=== PATIENT | male | born 1970 | race Caucasian/White ===

== ENCOUNTER 2020-11-30 02:48 | Observation (INO) | payer OTHER ==
[~2020-11-30] VITALS: Ht 180.3 cm; Wt 89.4 kg
[2020-11-30 03:39] LABS: BASOPHILS ABSOLUTE AUTO 0.12 K/mm3 (0.00-0.23); BASOPHILS PERCENT AUTO 2 % (0-2); EOSINOPHILS ABSOLUTE AUTO 0.31 K/mm3 (0.00-0.68); EOSINOPHILS PERCENT AUTO 4 % (0-6); Hematocrit 41.6 % (37.0-53.0); Hemoglobin 14.4 g/dL (13.5-17.5); IMMATURE GRAN ABSOLUTE AUTO 0.02 K/mm3 (0.00-0.10); IMMATURE GRAN PERCENT AUTO 0 % (0-1); LYMPHOCYTES ABSOLUTE AUTO 2.48 K/mm3 (0.84-5.20); LYMPHOCYTES PERCENT AUTO 33 % (21-46); MONOCYTES ABSOLUTE AUTO 0.84 K/mm3 (0.16-1.47); MONOCYTES PERCENT AUTO 11 % (4-13); Mean Corpuscular HGB Conc 34.6 g/dL (31.5-36.5); Mean Corpuscular Volume 92 fL (80-100); Mean Platelet Volume 10.2 fL (9.1-12.4); NEUTROPHILS ABSOLUTE AUTO 3.71 K/mm3 (1.96-9.15); NEUTROPHILS PERCENT AUTO 50 % (41-73); Platelet Count 104 K/mm3 (150-400); RDW Coefficient Variation 12.3 % (11.7-14.2); RDW Standard Deviation 42.1 fL (35.1-46.3); White Blood Cell Count 7.48 K/mm3 (4.00-11.30)
[2020-11-30 03:44] LABS: Alanine Aminotransfer (ALT/SGP 29 U/L (12-78); Albumin, Blood 3.6 g/dL (3.4-5.0); Alk Phos 66 U/L (50-136); Anion Gap 6 mmol/L (6-16); Aspartate Aminotrans (AST/SGOT 26 U/L (12-37); Bilirubin, Total 0.8 mg/dL (0.1-1.0); Blood Urea Nitrogen 14 mg/dL (8-24); Bun/Creatinine Ratio 18.5 (12.0-20.0); CO2, Blood 24 mmol/L (21-32); Calcium, Blood 8.1 mg/dL (8.5-10.1); Chloride, Blood 110 mmol/L (98-108); Creatinine, Blood 0.76 mg/dL (0.60-1.20); Globulin, Blood 3.5 g/dL (2.2-4.0); Glomerular Filtration Rate >60 (60-); Glucose, Blood 85 mg/dL (70-99); Potassium, Blood 3.6 mmol/L (3.5-5.5); Sodium, Blood 140 mmol/L (136-145); Total Protein, Blood 7.1 g/dL (6.4-8.2)
--- NOTE | 2020-11-30 05:00 | NUR ---
ADMISSION/SUMMARY NOTE RECEIVED HAND OFF FROM Romeo MCKENNA RN USING SBAR. TRANSPORTED TO ROOM 333 VIA STRETCHER. TRANSFEERED SELF TO BED WITH STANDBY ASSIST, TOLERATED WELL. AAO X3, SNOW, FOLLOWS ALL COMMANDS. ORIENTED TO ROOM, CALL SYSTEM, AND POC, VOICES UNDERSTANDING. RESPIRATIONS EVEN AND UNLABORED ON RA. LUNG SOUNDS CLEAR BILATERALLY. ABDOMEN SOFT AND NONDISTENDED. BOWEL SOUNDS NOTED IN ALL QUADS. CONTINENT OF BOWEL AND BLADDER. INDEPENDENT IN THE ROOM. DENIES SOB OR CP, TELE SHOWS NSR. RIGHT AC 18G PIV IS PATENT, INFUSING NS AT 75ML/HR. ADMISSION ASSESSMENT IN PROGRESS. SAFETY MEASURES IN PLACE. WILL CONTINUE TO MONITOR AND ADRRESS NEEDS THEY ARISE AND GIVE HAND OFF TO ONCOMING SHIFT USING SBAR.
[2020-11-30] MEDS ORDERED: MULVITA (06:02)
--- NOTE | 2020-11-30 10:43 | NUR ---
DR'S NOTE SAYS THAT IF TROPONIN REMAINS HIGH A STRESS TEST SHOULD BE ORDERED, DR OCONNELL STOPPED BY TO ASSESS PT WHO WAS SLEEPING, ASKED NURSE TO ASK PT WHAT THE PT WANTED, PT EXPRESSED DESIRE THAT IF INDICATED HE WOULD LIKE TO KNOW THE CAUSE OF HEART ISSUES SO IF A STRESS TEST WOULD INFORM HIM HE WOULD WANT ONE, WROTE ORDER AND AM WAITING ON TOPONIN TEST RESULTS
[2020-11-30 11:19] LABS: Troponin I 0.196 ng/mL (0.000-0.040)
--- NOTE | 2020-11-30 17:21 | NUR ---
A+O, WAITING RESULT OF TROPONIN IF LOW WANTS TO GO HOME IF NOT HOPES TO HAVE A STRESS TEST, WILL CONTINUE TO MONITOR AND TREAT
[2020-11-30 17:33] LABS: Troponin I 0.154 ng/mL (0.000-0.040)
[2020-11-30] MEDS ORDERED: ASPI81CH PO (18:10)
[2020-11-30] MEDS ORDERED: METO25ER PO (18:10)
--- NOTE | 2020-11-30 18:26 | NUR ---
responded to the pt request and wrote up dc orders after pt stated he wanted to see his home dr, iv and tele removed, dc orders and medications reviewed with pt, staff escorted pt in wc to family vehicle, pt had agreed to 's request that he not drive
== END 2020-11-30 18:17 | disposition home or self-care (01) ==
LOC: ER 02:48 → MEDS 02:49
PROVIDERS: Emergency Medicine; ADMIT Internal Medicine
DX: R07.9 Chest pain, unspecified (principal); R79.89 Other specified abnormal findings of blood chemistry; F17.210 Nicotine dependence, cigarettes, uncomplicated; E11.9 Type 2 diabetes mellitus without complications
CPT/HCPCS: 36415; 71045; 80053; 82550; 83735; 84484; 85025; 93005; 93010; 93306; 96372; 99285-25; A9270; G0378; J1650; J7030